=== PATIENT | female | born 1950 | race Two or more races ===

== ENCOUNTER 2021-11-11 08:30 | Inpatient (IN) | payer OTHER ==
[~2021-11-11] VITALS: Ht 162.6 cm; Wt 95.3 kg
[2021-11-11] MEDS ORDERED: SYNTHROID50 MCG PO (15:14)
[2021-11-11] MEDS ORDERED: ATACAND4 MG PO (15:14)
[2021-11-11] MEDS ORDERED: ZOCOR20 MG PO (15:14)
[2021-11-11] MEDS ORDERED: INTESTINEX680 M1 PO (15:15)
[2021-11-20] MEDS ORDERED: NEURONTIN300 MG PO (14:05)
== END 2021-11-20 14:15 | disposition home or self-care (01) | DRG 334 ==
LOC: SURH 11-17 06:10 → O/R 11-17 06:10 → SURH 11-17 08:30
PROVIDERS: ADMIT Surgery; ATTEND Surgery
PROC: 0DBP4ZZ Excision of Rectum, Percutaneous Endoscopic Approach (ICD-10-PCS; principal; 2021-11-17 14:30)
DX: K57.32 Diverticulitis of large intestine without perforation or abscess without bleeding (principal); K63.5 Polyp of colon; I10 Essential (primary) hypertension; E03.8 Other specified hypothyroidism

== ENCOUNTER 2021-12-01 12:03 | Emergency (ER) | payer OTHER ==
[~2021-12-01] VITALS: Ht 162.6 cm; Wt 95.3 kg
[~2021-12-01 12:03] MED LIST: ATACAND4 MG PO; INTESTINEX680 M1 PO; NEURONTIN300 MG PO; SYNTHROID50 MCG PO; ZOCOR20 MG PO
== END 2021-12-01 19:48 | disposition home or self-care (01) ==
LOC: ER 12:03
DX: R10.9 Unspecified abdominal pain (principal); R11.10 Vomiting, unspecified; Z20.822 Contact with and (suspected) exposure to COVID-19; Z88.6 Allergy status to analgesic agent; Z88.2 Allergy status to sulfonamides; Z88.1 Allergy status to other antibiotic agents